=== PATIENT | female | born 1995 | race Caucasian/White ===

== ENCOUNTER 2020-11-20 15:26 | Inpatient (IN) | payer OTHER ==
[~2020-11-20 15:26] MED LIST: AMOXICILLIN500 MG PO; ATIVAN0.5 MG PO; FLEXERIL5 MG PO; IBUPROFEN800 MG PO; KEFLEX500 MG PO; PREDNISONE 20MG20 MG PO; PRILOSEC20 MG PO; VENTOLIN HFA IN18 GM INH
[2020-11-20 16:13] LABS: BILIRUBIN NEGATIVE (NEGATIVE); BLOOD NEGATIVE Ery/uL (NEGATIVE); CLARITY CLEAR (CLEAR); COLOR YELLOW (YELLOW); GLUCOSE (U) NORMAL (NORMAL); LEUKOCYTES NEGATIVE Leu/uL (NEGATIVE); NITRITE NEGATIVE (NEGATIVE); PROTEIN NEGATIVE (NEGATIVE); SPECIFIC GRAVITY 1.025 (1.001-1.030); UROBILINOGEN 0.2 mg/dL (0.2-1.0)
[2020-11-20 16:14] LABS: HCT 38.1 % (37.0-47.0); HGB 12.6 g/dl (12.5-16.0); MCH 28.2 pg (25.0-31.0); MCHC 33.1 g/dL (32.0-36.0); MCV 85.2 fL (78.0-100.0); MPV 11.4 fL (6.0-9.5); RBC 4.47 M/uL (4.20-5.40); RDW 13.3 % (11.5-14.0); WBC 9.5 K/uL (4.0-10.5)
[2020-11-20 16:29] LABS: ALBUMIN 2.4 g/dL (3.4-5.0); BILIRUBIN - TOTAL 0.2 mg/dL (0.2-1.0); BUN/CREAT RATIO (CALC) 16.7 RATIO; CREATININE 0.6 mg/dL (0.51-0.95); GLOBULIN (CALCULATION) 4.2 g/dL; POTASSIUM 4.3 mmol/L (3.5-5.1); TOTAL PROTEIN 6.6 g/dL (6.4-8.2); URIC ACID 4.2 mg/dL (2.6-6.2)
[2020-11-20 16:35] LABS: PROTEIN:CREATININE 0.09 RATIO; URINE CREATININE 80.9 mg/dL (29.00-226.00); URINE TOTAL PROTEIN-RANDOM 7.9 mg/dL (<11.9)
[2020-11-21 08:27] LABS: AMPHETAMINES NEGATIVE (NEGATIVE); BARBITURATES NEGATIVE (NEGATIVE); ECSTASY (MDMA) NEGATIVE (NEGATIVE); MARIJUANA (THC) POSITIVE (NEGATIVE); METHADONE NEGATIVE (NEGATIVE); OPIATES NEGATIVE (NEGATIVE); OXYCODONE NEGATIVE (NEGATIVE)
[2020-11-21 14:07] LABS: BILIRUBIN NEGATIVE (NEGATIVE); BLOOD NEGATIVE Ery/uL (NEGATIVE); CLARITY CLEAR (CLEAR); COLOR YELLOW (YELLOW); GLUCOSE (U) NORMAL (NORMAL); LEUKOCYTES NEGATIVE Leu/uL (NEGATIVE); NITRITE NEGATIVE (NEGATIVE); PROTEIN NEGATIVE (NEGATIVE); SPECIFIC GRAVITY >=1.030 (1.001-1.030); UROBILINOGEN 0.2 mg/dL (0.2-1.0)
[2020-11-22 05:54] LABS: HGB 11.6 g/dl (12.5-16.0); MCH 28.8 pg (25.0-31.0); MCHC 33.1 g/dL (32.0-36.0); MCV 86.8 fL (78.0-100.0); MPV 11.5 fL (6.0-9.5); RBC 4.03 M/uL (4.20-5.40); RDW 13.1 % (11.5-14.0); WBC 11.7 K/uL (4.0-10.5)
== END 2020-11-23 12:42 | disposition home or self-care (01) | DRG 788 ==
LOC: FOB 15:26 → FOD 15:26 → FOB 15:28 → FOD 20:37 → FOB 20:39
PROVIDERS: ADMIT Obstetrics & Gynecology
PROC: 4A1HX4Z Monitoring of Products of Conception, Cardiac Electrical Activity, External Approach (ICD-10-PCS; 2020-11-21)
PROC: 10D00Z1 Extraction of Products of Conception, Low, Open Approach (ICD-10-PCS; principal; 2020-11-21 12:30)
DX: O34.211 Maternal care for low transverse scar from previous cesarean delivery (principal); O10.12 Pre-existing hypertensive heart disease complicating childbirth; N85.8 Other specified noninflammatory disorders of uterus; Z3A.36 36 weeks gestation of pregnancy; Z37.0 Single live birth; O99.214 Obesity complicating childbirth; F12.90 Cannabis use, unspecified, uncomplicated; O99.824 Streptococcus B carrier state complicating childbirth; J45.909 Unspecified asthma, uncomplicated; K21.9 Gastro-esophageal reflux disease without esophagitis; Z20.822 Contact with and (suspected) exposure to COVID-19; G47.33 Obstructive sleep apnea (adult) (pediatric); E66.01 Morbid (severe) obesity due to excess calories; Z81.1 Family history of alcohol abuse and dependence; Z81.8 Family history of other mental and behavioral disorders; Z82.61 Family history of arthritis; Z78.9 Other specified health status; Z87.891 Personal history of nicotine dependence; R82.71 Bacteriuria; O40.9XX0 Polyhydramnios, unspecified trimester, not applicable or unspecified; F32.9 Major depressive disorder, single episode, unspecified
CPT/HCPCS: 36415; 71046; 80053; 80305; 81003; 82570; 83615; 84156; 84550; 86850; 86900; 86901; 94010; J0456; J0690; J1200; J1650; J1885; J2274; J2370; J2405; J2765; J3010; J7050; J7120; U0002

== ENCOUNTER 2020-12-18 15:17 | Emergency (ER) | payer OTHER ==
[2020-12-18] MEDS ORDERED: PRENATAL MULTI1 EAC6 PO (15:32)
[2020-12-18 19:01] LABS: BILIRUBIN NEGATIVE (NEGATIVE); BLOOD 2+ Ery/uL (NEGATIVE); CLARITY CLEAR (CLEAR); COLOR YELLOW (YELLOW); GLUCOSE (U) NORMAL (NORMAL); LEUKOCYTES NEGATIVE Leu/uL (NEGATIVE); NITRITE NEGATIVE (NEGATIVE); PROTEIN NEGATIVE (NEGATIVE); SPECIFIC GRAVITY 1.025 (1.001-1.030); UROBILINOGEN 0.2 mg/dL (0.2-1.0); pH 6.5 (5.0-9.0)
[2020-12-18 19:03] LABS: EOSINOPHIL 7.8 % (0-5); HCT 39.3 % (37.0-47.0); HGB 12.8 g/dl (12.5-16.0); MCH 27.8 pg (25.0-31.0); MCHC 32.6 g/dL (32.0-36.0); MCV 85.2 fL (78.0-100.0); MONOCYTE 7.5 % (0-12); MPV 10.7 fL (6.0-9.5); NEUTROPHIL 33.9 % (41-80); NRBC 0; PLT 282 K/uL (150-400); RBC 4.61 M/uL (4.20-5.40); RDW 13.2 % (11.5-14.0)
[2020-12-18 19:19] LABS: ALBUMIN 3.1 g/dL (3.4-5.0); BILIRUBIN - TOTAL 0.6 mg/dL (0.2-1.0); BUN/CREAT RATIO (CALC) 22.1 RATIO; C-REACTIVE PROTEIN 0.7 mg/dL (<=0.90); CREATININE 0.77 mg/dL (0.51-0.95); GLOBULIN (CALCULATION) 4.8 g/dL; POTASSIUM 4.2 mmol/L (3.5-5.1); TOTAL PROTEIN 7.9 g/dL (6.4-8.2)
[2020-12-18 19:22] LABS: BACTERIA TRACE
[2020-12-18] MEDS ORDERED: CEFDINIR300 MG PO (20:37)
[2020-12-18] MEDS ORDERED: ZOFRAN4 M1 PO ×2 (20:37→20:39)
== END 2020-12-18 21:22 | disposition home or self-care (01) ==
LOC: FER 15:17
PROVIDERS: Physician Assistant
DX: R51.9 Headache, unspecified (principal); F17.210 Nicotine dependence, cigarettes, uncomplicated; Z91.040 Latex allergy status
CPT/HCPCS: 36415; 70450; 80053; 81001; 84145; 85025; 86140

== ENCOUNTER 2021-03-21 09:09 | Emergency (ER) | payer OTHER ==
[~2021-03-21 09:09] MED LIST changes: +CEFDINIR300 MG PO; +PRENATAL MULTI1 EAC6 PO; +ZOFRAN4 M1 PO
[2021-03-21] MEDS ORDERED: PREDNISONE20 MG PO (13:04)
== END 2021-03-21 13:50 | disposition home or self-care (01) ==
LOC: FER 09:09
DX: J45.901 Unspecified asthma with (acute) exacerbation (principal); F17.290 Nicotine dependence, other tobacco product, uncomplicated; Z20.822 Contact with and (suspected) exposure to COVID-19; Z91.040 Latex allergy status
CPT/HCPCS: 71046; U0002

== ENCOUNTER 2021-07-19 19:24 | Emergency (ER) | payer OTHER ==
[~2021-07-19 19:24] MED LIST changes: +PREDNISONE20 MG PO
[2021-07-19 21:47] LABS: CORONAVIRUS 2019 SARS-COV-2 NEGATIVE (NEGATIVE); INFLUENZA A NAA NEGATIVE (NEGATIVE)
[2021-07-19] MEDS ORDERED: MEDROL 4MG DOSEP4 MG PO (22:02)
== END 2021-07-19 22:18 | disposition home or self-care (01) ==
LOC: FER 19:24
PROVIDERS: Nurse Practitioner Family
DX: J40 Bronchitis, not specified as acute or chronic (principal); B34.9 Viral infection, unspecified; J45.909 Unspecified asthma, uncomplicated; F17.210 Nicotine dependence, cigarettes, uncomplicated; Z20.822 Contact with and (suspected) exposure to COVID-19; Z91.040 Latex allergy status
CPT/HCPCS: 71045; J1100; U0002

== ENCOUNTER 2021-11-09 03:22 | Emergency (ER) | payer OTHER ==
[~2021-11-09 03:22] MED LIST changes: +MEDROL 4MG DOSEP4 MG PO
[2021-11-09 03:55] LABS: BASOPHIL 0.7 % (0-2); EOSINOPHIL 1.1 % (0-5); HCT 45.7 % (37.0-47.0); HGB 14.5 g/dl (12.5-16.0); LYMPHOCYTE 43.3 % (15-48); MCH 26.9 pg (25.0-31.0); MCHC 31.7 g/dL (32.0-36.0); MCV 84.8 fL (78.0-100.0); MONOCYTE 6.3 % (0-12); MPV 10.9 fL (6.0-9.5); NEUTROPHIL 47.9 % (41-80); NRBC 0; PLT 278 K/uL (150-400); RBC 5.39 M/uL (4.20-5.40); RDW 14.3 % (11.5-14.0)
[2021-11-09 03:58] LABS: WBC 12.2 K/uL (4.0-10.5)
[2021-11-09 04:10] LABS: BUN/CREAT RATIO (CALC) 11.1 RATIO; CREATININE 0.63 mg/dL (0.51-0.95); POTASSIUM 3.1 mmol/L (3.5-5.1)
[2021-11-09 05:01] LABS: BILIRUBIN NEGATIVE (NEGATIVE); BLOOD NEGATIVE Ery/uL (NEGATIVE); CLARITY CLEAR (CLEAR); COLOR YELLOW (YELLOW); GLUCOSE (U) NORMAL (NORMAL); LEUKOCYTES NEGATIVE Leu/uL (NEGATIVE); NITRITE NEGATIVE (NEGATIVE); PROTEIN NEGATIVE (NEGATIVE); SPECIFIC GRAVITY <=1.005 (1.001-1.030); UROBILINOGEN 0.2 mg/dL (0.2-1.0)
[2021-11-09 05:05] LABS: AMPHETAMINES NEGATIVE (NEGATIVE); BARBITURATES NEGATIVE (NEGATIVE); ECSTASY (MDMA) NEGATIVE (NEGATIVE); MARIJUANA (THC) NEGATIVE (NEGATIVE); METHADONE NEGATIVE (NEGATIVE); OPIATES NEGATIVE (NEGATIVE); OXYCODONE NEGATIVE (NEGATIVE)
== END 2021-11-09 06:50 | disposition home or self-care (01) ==
LOC: FER 03:22
PROVIDERS: Internal Medicine
DX: F10.129 Alcohol abuse with intoxication, unspecified (principal); E87.6 Hypokalemia; F17.210 Nicotine dependence, cigarettes, uncomplicated; Y90.6 Blood alcohol level of 120-199 mg/100 ml; Z88.0 Allergy status to penicillin; Z28.310 Unvaccinated for COVID-19
CPT/HCPCS: 36415; 70450; 80048; 80305; 81003; 84703; 85025; G0480; J2405; J2550; J3475; J7120